=== PATIENT | female | born 1975 | race African-American/Black ===

== ENCOUNTER 2018-11-30 12:15 | Emergency (ER) | payer SELFPAY ==
[~2018-11-30] VITALS: Ht 162.6 cm; Wt 55.0 kg
[2018-11-30 12:55] VITALS: BP 98/71
[2018-11-30] MEDS ORDERED: BUTA-281 PO (13:39)
[2018-11-30] MEDS ORDERED: ketorolac trometh inj. 60 MG/2 ML VIAL IM ONE (13:40)
== END 2018-11-30 14:05 | disposition home or self-care (01) ==
LOC: ER 12:16
DX: G43.909 Migraine, unspecified, not intractable, without status migrainosus (principal); Z79.899 Other long term (current) drug therapy
CPT/HCPCS: 96372; 99283; J1885